=== PATIENT | male | born 1970 | race Caucasian/White ===

== ENCOUNTER 2019-01-11 16:32 | Emergency (ER) | payer MEDICAID ==
[~2019-01-11] VITALS: Ht 188 cm; Wt 64.4 kg
[2019-01-11 16:56] VITALS: Ht 188 cm; Wt 64.4 kg
[2019-01-11 18:08] LABS: PLATELET COUNT 60 x10^3mcL (130-400); RED CELL DISTRIBUTION WIDTH 16.3 % (11.5-14.5)
[2019-01-11 18:15] LABS: CALCIUM 8.1 mg/dL (8.5-10.1); CARBON DIOXIDE 26.6 mmol/L (21-32); CHLORIDE SERUM 93 mmol/L (98-107); GFR1 > 60 mL/min; GLUCOSE SERUM 116 mg/dL (74-106); POTASSIUM SERUM 3.2 mmol/L (3.5-5.1); SODIUM SERUM 132 mmol/L (136-145)
[2019-01-11 18:19] LABS: ALBUMIN 3.4 g/dL (3.4-5.0); ALKALINE PHOSPHATASE 150 U/L (46-116); ALT/SGPT 211 U/L (16-63); AST/SGOT 258 U/L (15-37); TOTAL PROTEIN, SERUM 6.7 g/dL (6.4-8.2)
[2019-01-11 19:03] LABS: UA SPECIFIC GRAVITY <=1.005 (1.005-1.035); microscopic required? YES; urine erythrocyte TRACE (NEGATIVE)
[2019-01-11 19:10] VITALS: BP 118/83
== END 2019-01-11 20:51 | disposition home or self-care (01) ==
LOC: ED 16:32
PROVIDERS: Emergency Medicine
DX: F10.239 Alcohol dependence with withdrawal, unspecified (principal); F41.9 Anxiety disorder, unspecified; Z59.0 Homelessness; Z98.890 Other specified postprocedural states; Y90.9 Presence of alcohol in blood, level not specified
CPT/HCPCS: 82962; J2060; J2405; J7030

== ENCOUNTER 2019-02-07 13:16 | Emergency (ER) | payer MEDICAID ==
[~2019-02-07] VITALS: Ht 190.5 cm; Wt 68.5 kg
[2019-02-07 13:28] VITALS: Ht 190.5 cm; Wt 68.5 kg
[2019-02-07 15:09] LABS: BASOPHIL % 0.6 % (0-2); CALCIUM 8.1 mg/dL (8.5-10.1); CARBON DIOXIDE 30.1 mmol/L (21-32); CHLORIDE SERUM 108 mmol/L (98-107); CREATININE SERUM 0.8 mg/dL (0.7-1.3); GFR1 > 60 mL/min; GLUCOSE SERUM 98 mg/dL (74-106); PLATELET COUNT 224 x10^3mcL (130-400); POTASSIUM SERUM 3.4 mmol/L (3.5-5.1); RED CELL DISTRIBUTION WIDTH 14.5 % (11.5-14.5); SODIUM SERUM 144 mmol/L (136-145)
[2019-02-07 15:13] LABS: ALKALINE PHOSPHATASE 74 U/L (46-116); ALT/SGPT 26 U/L (16-63); AST/SGOT 16 U/L (15-37); BILIRUBIN TOTAL 0.3 mg/dL (0.20-1.00); TOTAL PROTEIN, SERUM 6.3 g/dL (6.4-8.2)
[2019-02-07 15:15] LABS: ALBUMIN 3.1 g/dL (3.4-5.0)
[2019-02-07 15:53] VITALS: BP 136/65
== END 2019-02-07 15:53 | disposition home or self-care (01) ==
LOC: ED 13:16
PROVIDERS: Emergency Medicine
DX: S90.01XA Contusion of right ankle, initial encounter (principal); L03.115 Cellulitis of right lower limb; Z98.890 Other specified postprocedural states; I87.8 Other specified disorders of veins; X58.XXXA Exposure to other specified factors, initial encounter; Y93.89 Activity, other specified; Y92.89 Other specified places as the place of occurrence of the external cause; Y99.8 Other external cause status
CPT/HCPCS: 36415